=== PATIENT | male | born 1985 | race Caucasian/White ===

== ENCOUNTER 2017-11-28 22:56 | Emergency (ER) | payer OTHER ==
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
[2017-11-29 01:33] VITALS: BP 127/55
== END 2017-11-29 01:31 | disposition home or self-care (01) ==
LOC: ER 22:56
DX: S30.0XXA Contusion of lower back and pelvis, initial encounter (principal); V28.4XXA Motorcycle driver injured in noncollision transport accident in traffic accident, initial encounter; I10 Essential (primary) hypertension
CPT/HCPCS: 72220; 99283

== ENCOUNTER 2019-03-14 14:45 | Emergency (ER) | payer SELFPAY ==
[2019-03-14 14:49] VITALS: BP 144/89
[2019-03-14] MEDS ORDERED: TETRACAINE HCL 0.5% OPH SOLN 4 ML OD ONE (15:17)
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
[2019-03-14] MEDS ORDERED: ERYTHROMYCIN 0.5% OPH OINTMENT 3.5 GM (ER DISP) OD PRN (15:56)
== END 2019-03-14 16:08 | disposition home or self-care (01) ==
LOC: ER 14:45
DX: H57.11 Ocular pain, right eye (principal); Z87.891 Personal history of nicotine dependence
CPT/HCPCS: 99283; J3490